=== PATIENT | male | born 1955 | race Caucasian/White ===

== ENCOUNTER 2025-02-02 06:37 | Day surgery (SDC) | payer BC ==
[2025-02-01 15:24] VITALS: BMI 28.8
[~2025-02-02 06:37] MED LIST: ENOXAPARIN IRR SCH; FLUOROURACIL IRR SCH
[2025-02-02] MEDS ORDERED: Cyclopentolate 1% Opth Drop 2 ML BOT ONE (07:39)
== END 2025-02-02 10:40 | disposition home or self-care (01) ==
LOC: SDC 06:37
PROVIDERS: ATTEND Ophthalmology Retina Specialist
DX: H35.371 Puckering of macula, right eye (principal); Z98.41 Cataract extraction status, right eye; Z96.1 Presence of intraocular lens
CPT/HCPCS: J1650; J2250; J3010; J9190